=== PATIENT | female | born 1970 | race Caucasian/White ===

== ENCOUNTER 2016-10-22 08:02 | Emergency (ER) | payer OTHER ==
[2016-10-22 08:42] LABS: BILIRUBIN 1+ mg/dL (NEGATIVE); BLOOD NEGATIVE Ery/uL (NEGATIVE); CLARITY CLEAR (CLEAR); COLOR YELLOW (YELLOW); GLUCOSE (U) NORMAL (NORMAL); KETONE (U) TRACE mg/dL (NEGATIVE); LEUKOCYTES NEGATIVE Leu/uL (NEGATIVE); NITRITE NEGATIVE (NEGATIVE); PROTEIN 1+ mg/dL (NEGATIVE); SPECIFIC GRAVITY >=1.030 (1.001-1.030); pH 5.5 (5.0-9.0)
[2016-10-22 08:46] LABS: GRANULAR CASTS TRACE; MUCOUS MODERATE
[2016-10-22 08:53] LABS: BASOPHIL 0.7 % (0-2); EOSINOPHIL 1.4 % (0-5); HCT 43.8 % (37.0-47.0); HGB 14.2 g/dl (12.5-16.0); LYMPHOCYTE 24.5 % (15-48); MCHC 32.4 g/dL (32.0-36.0); MCV 86.2 fL (78.0-100.0); MONOCYTE 10.6 % (0-12); MPV 9.5 fL (6.0-9.5); NEUTROPHIL 62.8 % (41-80); PLT 240 K/uL (150-400); RBC 5.08 M/uL (4.20-5.40); RDW 14.9 % (11.5-14.0)
[2016-10-22 09:10] LABS: ALBUMIN 4.1 g/dL (3.5-5.0); BILIRUBIN - TOTAL 0.5 mg/dL (0.1-1.0); CREATININE 1.2 mg/dL (0.5-1.0); GLOBULIN (CALCULATION) 3.3 g/dL (2.2-4.2); POTASSIUM 3.7 mmol/L (3.5-5.1); TOTAL PROTEIN 7.4 g/dL (6.4-8.3)
== END 2016-10-22 11:17 | disposition home or self-care (01) ==
LOC: FER 08:02
PROVIDERS: Emergency Medicine
DX: M54.9 Dorsalgia, unspecified (principal); R06.02 Shortness of breath; R11.0 Nausea; Z88.5 Allergy status to narcotic agent; Z90.49 Acquired absence of other specified parts of digestive tract; Z98.84 Bariatric surgery status
CPT/HCPCS: 36415; 80053; 81001; 83690; 85025